=== PATIENT | male | born 1950 | race Caucasian/White ===

== ENCOUNTER → 2016-06-05 | Outpatient (CLI) | payer MEDICAID | LOC: CIMAGING 09:33 | PROVIDERS: ATTEND Internal Medicine | DX: K74.69 Other cirrhosis of liver (principal) | CPT/HCPCS: 76705-PO ==

== ENCOUNTER → 2016-10-25 | Outpatient (CLI) | payer MEDICAID | LOC: CIMAGING 08:08 | PROVIDERS: ATTEND Internal Medicine | DX: K74.69 Other cirrhosis of liver (principal); N28.1 Cyst of kidney, acquired | CPT/HCPCS: 76705-PO ==

== ENCOUNTER → 2017-06-18 | Outpatient (CLI) | payer MEDICAID | LOC: CIMAGING 08:38 | PROVIDERS: ATTEND Physician Assistant | DX: K74.69 Other cirrhosis of liver (principal); K76.89 Other specified diseases of liver; I70.0 Atherosclerosis of aorta | CPT/HCPCS: 76705-PO ==